=== PATIENT | male | born 1960 | race Caucasian/White ===

== ENCOUNTER 2022-04-07 06:51 | Emergency (ER) | payer OTHER, SELFPAY ==
[2022-04-07 07:00] VITALS: BP 118/74; PULSE 80; RESP 20; TEMP 36.9; O2SAT 94
--- NOTE | 2022-04-07 07:09 | ED_ITS ---
HPI - General Adult General Time Seen by Provider: 07:09 <Levar Arellano MD - Last Filed: 04/07/22 07:40> Date Seen: 04/07/22 <Levar Arellano MD - Last Filed: 04/07/22 07:40> Chief complaint: Anxiety <Levar Arellano MD - Last Filed: 04/07/22 07:40> Stated complaint: Mental health <Levar Arellano MD - Last Filed: 04/07/22 07:40> Time Seen by Provider: 04/07/22 07:03 <Levar Arellano MD - Last Filed: 04/07/22 07:40> Source: patient <Levar Arellano MD - Last Filed: 04/07/22 07:40> Mode of arrival: EMS <Levar Arellano MD - Last Filed: 04/07/22 07:40> Limitations: no limitations <Levar Arellano MD - Last Filed: 04/07/22 07:40> History of Present Illness HPI narrative: Theron is a 61-year-old male past medical history includes anxiety and depression, suicidal ideations and suicide attempt in the past with overdose, presents emergency department from [facility] via EMS with anxiety. Patient states that over the last 2 months he has had increased anxiety not being able to sleep. Patient states that he just lays in bed looking at the fan on the ceiling cannot sleep, he says for 25 days straight, he was started on Prozac 2 months ago which is not helping, he did have outpatient therapy but has not been going recently. Has anger issues due to being tired of being anxious and feeling this way. Patient denies any suicidal ideations, denies any auditory or visual hallucinations. He feels that his primary does not help him. His last drink was 3 weeks ago, he quit smoking as well. Denies any illicit drug use. Has been sometime since he has had his blood checked. Denies any fever, cough, shortness of breath or chest pain, no recent illness. Patient does state he had an episode of vomiting yesterday after eating some pizza. Denies any diarrhea or urinary complaints. Patient has no cardiac or stroke history. Due to the increased anger and anxiety associated with this he presentsto the emergency department. <Levar Arellano MD - Last Filed: 04/07/22 07:40> Related Data Home medications: Home Medications Medication Instructions Recorded Confirmed amlodipine 5 mg tablet 5 mg PO DAILY 04/07/22 04/07/22 atorvastatin 20 mg tablet 20 mg PO HS 04/07/22 04/07/22 fluoxetine 20 mg capsule 20 mg PO DAILY 04/07/22 04/07/22 pantoprazole 40 mg tablet,delayed 40 mg PO DAILY 04/07/22 04/07/22 release Previous Rx's Medication Instructions Recorded gabapentin 300 mg capsule 300 mg PO .at HS insomnia #30 caps 04/07/22 <Levar Arellano MD - Last Filed: 04/07/22 07:40> Allergies/adverse reactions: Allergies Allergy/AdvReac Type Severity Reaction Status Date / Time No Known Drug Allergies Allergy Verified 04/07/22 07:05 <Levar Arellano MD - Last Filed: 04/07/22 07:40> Review of Systems Status of ROS: Reports: 10 or more systems reviewed and unremarkable except as noted in History and below <Levar Arellano MD - Last Filed: 04/07/22 07:40> [facility] Social History: Social History Smoking Status: Former smoker Do you use any of these nicotine containing products: None Second hand tobacco smoke exposure: No How often do you have a drink containing alcohol: never How often do you have six or more drinks on one occasion: Never AUDIT-C Alcohol total score: 0 Non-prescribed substance use: denies use Non-prescribed substance use details: Patient reports smoking cessation January 01, ETOH cessation x 1 month. <Levar Arellano MD - Last Filed: 04/07/22 07:40> Exam Narrative: Exam Narrative: General: Mildly anxious in appearance, nontoxic. HEENT: Tympanic membranes within normal limits bilaterally, pupils equal round reactive to light, extraocular muscles intact Neck: Supple, full range of motion Lungs: CTA bilaterally Heart: Normal sinus rhythm, S1-S2 Abdomen: Soft, nontender to palpation, bowel sounds present Muscle skeletal: No lower extremity edema, +5 strength upper lower extremities Neuro: Awake alert and oriented x3 Psych: Mood and affect normal, anxious <Levar Arellano MD - Last Filed: 04/07/22 07:40> Const: Vital Signs, click to edit/add: Vital Signs - 24 hr 04/07/22 07:00 04/07/22 08:05 Temperature 98.5 F Pulse Rate [Left P ulse Oximeter] 80 77 Respiratory Rate 20 18 Blood Pressure [Ri ght Upper Arm] 118/74 Pulse Oximetry 94 95 Oxygen Delivery Me thod Room Air Room Air <Levar Arellano MD - Last Filed: 04/07/22 07:40> Vital Signs, click to edit/add: Vital Signs - 24 hr 04/07/22 07:00 04/07/22 08:05 Temperature 98.5 F Pulse Rate [Left P ulse Oximeter] 80 77 Respiratory Rate 20 18 Blood Pressure [Ri ght Upper Arm] 118/74 Pulse Oximetry 94 95 Oxygen Delivery Me thod Room Air Room Air <Roni Baker MD - Last Filed: 04/07/22 09:12> Course Course Hospital Course: 7:30 AM: AIDET performed. vitals are stable. Patient has not currently been seeing a therapist, feels that his medications are not working at this time, did offer [facility] social work and he agreed to talk to them, he also agreed to take basic blood work including CBC, TSH, CMP, serum ETOH and urine drug screen, he will be given oral Ativan 0.5 mg during his time, will try to get him to scheduled to see a primary care provider he has seen in the past and does well with. Patient is not currently suicidal, may give him a short prescription for Ativan to get him to his appointment. Due to shift change transfer of care was given to Dr. Baker, please see his note for final disposition and plan. Differential diagnosis include life-threatening diagnosis of severe depression with suicidal plan, chemical intoxication with suicidal ideation and risk of self-harm, schizoaffective disorder with risk of self-harm, bipolar disorder with severe depressive phase and risk of self-harm, personality disorder with risk of self-harm, depression due to hypothyroidism metabolic derangement or NONDESTRUCTIVE TESTER abnormality. <Levar Arellano MD - Last Filed: 04/07/22 07:40> Vital Signs Vital signs: Initial Vital Signs Temperature 98.5 F 04/07/22 07:00 Temperature Source Temporal Artery Scan 04/07/22 07:00 Pulse Rate 80 04/07/22 07:00 Pulse Rhythm 04/07/22 07:00 Respiratory Rate 20 04/07/22 07:00 Blood Pressure 118/74 04/07/22 07:00 Blood Pressure Mean 88 04/07/22 07:00 Blood Pressure Position Semi-Fowlers 04/07/22 07:00 Pulse Oximetry 94 04/07/22 07:00 Oxygen Delivery Method 04/07/22 07:00 Vital Signs Temperature 98.5 F 04/07/22 07:00 Pulse Rate 80 04/07/22 07:00 Respiratory Rate 20 04/07/22 07:00 Blood Pressure 118/74 04/07/22 07:00 Pulse Oximetry 94 04/07/22 07:00 Oxygen Delivery Method 04/07/22 07:00 Temperature 98.5 F 04/07/22 07:00 Pulse Rate 77 04/07/22 08:05 Respiratory Rate 18 04/07/22 08:05 Blood Pressure 118/74 04/07/22 07:00 Pulse Oximetry 95 04/07/22 08:05 Oxygen Delivery Method 04/07/22 08:05 <Levar Arellano MD - Last Filed: 04/07/22 07:40> Initial Vital Signs Temperature 98.5 F 04/07/22 07:00 Temperature Source Temporal Artery Scan 04/07/22 07:00 Pulse Rate 80 04/07/22 07:00 Pulse Rhythm 04/07/22 07:00 Respiratory Rate 20 04/07/22 07:00 Blood Pressure 118/74 04/07/22 07:00 Blood Pressure Mean 88 04/07/22 07:00 Blood Pressure Position Semi-Fowlers 04/07/22 07:00 Pulse Oximetry 94 04/07/22 07:00 Oxygen Delivery Method 04/07/22 07:00 Vital Signs Temperature 98.5 F 04/07/22 07:00 Pulse Rate 80 04/07/22 07:00 Respiratory Rate 20 04/07/22 07:00 Blood Pressure 118/74 04/07/22 07:00 Pulse Oximetry 94 04/07/22 07:00 Oxygen Delivery Method 04/07/22 07:00 Temperature 98.5 F 04/07/22 07:00 Pulse Rate 77 04/07/22 08:05 Respiratory Rate 18 04/07/22 08:05 Blood Pressure 118/74 04/07/22 07:00 Pulse Oximetry 95 04/07/22 08:05 Oxygen Delivery Method 04/07/22 08:05 <Roni Baker MD - Last Filed: 04/07/22 09:12> Medical Decision Making MDM Narrative Medical decision making narrative: Patient is received from the sign over physician, I discussed the case with the mental health bearing ring assembler, she feels follow-up with primary care is important. He does not have a good relationship with his current, she will try to make an appointment with a previous primary care provider. He already has a counselor place, he is not suicidal or homicidal, is trying to make life changes, he has tried [id number]-[id number] and other ways for the insomnia. Past history of alcohol abuse but he tells me he has not used this in the last 3 weeks. I think it would be reasonable at this point as he is safe to go home to try some gabapentin 300 mg at at bedtime, per the up-to-date guidelines this is beneficial in people with a history of alcohol use. The remainder of his labs look okay. He will return if any worsening condition, he assured me of this. <Roni Baker MD - Last Filed: 04/07/22 09:12> Differential Diagnosis Differential Diagnosis: Suicidal ideation, insomnia, psychosis, alcohol abuse, <Roni Baker MD - Last Filed: 04/07/22 09:12> Medical Records Medical records reviewed: Yes I reviewed the patient's medical records <Roni Baker MD - Last Filed: 04/07/22 09:12> Lab Data Lab results reviewed: Yes I reviewed the patient's lab results <Roni Baker MD - Last Filed: 04/07/22 09:12> Labs: Lab Results 04/07/22 04/07/22 Range/Units 07:37 07:37 WBC 10.63 (4.50-11.00) K/uL RBC 4.06 L (4.30-5.90) m/uL Hgb 12.9 L (13.5-17.5) gm/dL Hct 38.3 (37.0-53.0) % MCV 94 (80-100) fL MCH 32 (26-34) pg MCHC 34 (32-36) gm/dL RDW Coeff of Nanette 13.8 (11.5-15.5) % Plt Count 319 (140-440) K/uL Neut % (Auto) 61.8 (42.0-72.0) % Lymph % (Auto) 25.3 (20-44) % [place] % (Auto) 11.3 H (0.0-11.0) % Eos % (Auto) 1.3 (0.0-7.0) % Baso % (Auto) 0.2 (0.0-3.0) % Neut # (Auto) 6.57 (1.7-7.0) K/uL Lymph # (Auto) 2.69 (0.90-2.90) K/uL [place] # (Auto) 1.20 H (0.00-0.90) K/UL Eos # (Auto) 0.14 (0.00-0.50) K/uL Baso # (Auto) 0.02 (0.00-0.30) K/uL Abs Immat Gran (auto) 0.01 (0.00-0.30) K/uL Sodium 134 L (135-149) mmol/L Potassium 4.2 (3.6-5.1) mmol/L Chloride 100 (96-114) mmol/L Carbon Dioxide 25 (20-32) mmol/L BUN 13 (7-30) mg/dL Creatinine 0.7 (0.5-1.5) mg/dL Estimated GFR 104 ml/min Glucose 112 (60-115) mg/dL Calcium 9.2 (8.4-10.6) mg/dL Total Bilirubin 0.8 (0.1-1.5) mg/dL AST 62 H (12-35) U/L ALT 66 H (4-50) U/L Alkaline Phosphatase 96 (40-150) U/L Total Protein 7.1 (6.0-8.3) g/dL Albumin 4.2 (3.3-5.0) g/dL Ethyl Alcohol < 0.01 L (0.01-0.03) % <Levar Arellano MD - Last Filed: 04/07/22 07:40> Lab Results 04/07/22 04/07/22 Range/Units 07:37 07:37 WBC 10.63 (4.50-11.00) K/uL RBC 4.06 L (4.30-5.90) m/uL Hgb 12.9 L (13.5-17.5) gm/dL Hct 38.3 (37.0-53.0) % MCV 94 (80-100) fL MCH 32 (26-34) pg MCHC 34 (32-36) gm/dL RDW Coeff of Nanette 13.8 (11.5-15.5) % Plt Count 319 (140-440) K/uL Neut % (Auto) 61.8 (42.0-72.0) % Lymph % (Auto) 25.3 (20-44) % [place] % (Auto) 11.3 H (0.0-11.0) % Eos % (Auto) 1.3 (0.0-7.0) % Baso % (Auto) 0.2 (0.0-3.0) % Neut # (Auto) 6.57 (1.7-7.0) K/uL Lymph # (Auto) 2.69 (0.90-2.90) K/uL [place] # (Auto) 1.20 H (0.00-0.90) K/UL Eos # (Auto) 0.14 (0.00-0.50) K/uL Baso # (Auto) 0.02 (0.00-0.30) K/uL Abs Immat Gran (auto) 0.01 (0.00-0.30) K/uL Sodium 134 L (135-149) mmol/L Potassium 4.2 (3.6-5.1) mmol/L Chloride 100 (96-114) mmol/L Carbon Dioxide 25 (20-32) mmol/L BUN 13 (7-30) mg/dL Creatinine 0.7 (0.5-1.5) mg/dL Estimated GFR 104 ml/min Glucose 112 (60-115) mg/dL Calcium 9.2 (8.4-10.6) mg/dL Total Bilirubin 0.8 (0.1-1.5) mg/dL AST 62 H (12-35) U/L ALT 66 H (4-50) U/L Alkaline Phosphatase 96 (40-150) U/L Total Protein 7.1 (6.0-8.3) g/dL Albumin 4.2 (3.3-5.0) g/dL Ethyl Alcohol < 0.01 L (0.01-0.03) % <Roni Baker MD - Last Filed: 04/07/22 09:12> Discharge Plan Discharge Clinical Impression: Acute anxiety Insomnia Qualifiers: Insomnia type: unspecified Qualified Code(s): G47.00 - Insomnia, unspecified <Levar Arellano MD - Last Filed: 04/07/22 07:40> Patient Disposition: Home, Self-Care <Levar Arellano MD - Last Filed: 04/07/22 07:40> Condition: Stable <Levar Arellano MD - Last Filed: 04/07/22 07:40> Instructions: Insomnia (ED), Anxiety (ED) <Levar Arellano MD - Last Filed: 04/07/22 07:40> Additional Instructions: Home, rest, use of gabapentin 300 mg at night time, this medication will take approximately a week to really start working well for you. I recommend follow-up with primary care for recheck. And other modalities such as counseling, I think that is awesome for your changes you made in her life over the last few months. The medication will make you tired, do not combine with alcohol. <Levar Arellano MD - Last Filed: 04/07/22 07:40> Prescriptions: New gabapentin 300 mg capsule 300 mg PO .at HS Qty: 30 0RF No Action atorvastatin 20 mg tablet 20 mg PO HS Label Comments: TAKE ONE TABLET BY MOUTH AT BEDTIME amlodipine 5 mg tablet 5 mg PO DAILY Label Comments: TAKE 1 TABLET (5 MG) BY MOUTH ONCE DAILY pantoprazole 40 mg tablet,delayed release (DR/EC) 40 mg PO DAILY Label Comments: TAKE 1 TABLET BY MOUTH DAILY fluoxetine 20 mg capsule 20 mg PO DAILY Label Comments: TAKE 1 CAPSULE (20 MG) BY MOUTH EVERY MORNING. <Levar Arellano MD - Last Filed: 04/07/22 07:40> Follow Up/Referrals: Liza Ramirez MD [Staff Physician] - Anne Albrecht PA [Primary Care Provider] - <Levar Arellano MD - Last Filed: 04/07/22 07:40> Stand Alone Forms: MyHealth Info Instructions <Levar Arellano MD - Last Filed: 04/07/22 07:40>
[2022-04-07] MEDS: LORazepam 0.5 MG TABLET PO (07:41)
[2022-04-07 07:49] LABS: Basophils Absolute Auto 0.02 K/uL (0.00-0.30); Basophils Percent Auto 0.2 % (0.0-3.0); Eosinophils Absolute Auto 0.14 K/uL (0.00-0.50); Eosinophils Percent Auto 1.3 % (0.0-7.0); Hematocrit 38.3 % (37.0-53.0); Hemoglobin* 12.9 gm/dL (13.5-17.5); Immature Granulocytes Abs Auto 0.01 K/uL (0.00-0.30); Lymphocytes Absolute Auto 2.69 K/uL (0.90-2.90); Lymphocytes Percent Auto 25.3 % (20-44); Mean Corpuscular HGB Conc 34 gm/dL (32-36); Mean Corpuscular Hemoglobin 32 pg (26-34); Mean Corpuscular Volume 94 fL (80-100); Monocytes Percent Auto 11.3 % (0.0-11.0); Neutrophils Absolute Auto 6.57 K/uL (1.7-7.0); Neutrophils Percent Auto 61.8 % (42.0-72.0); Platelet Count* 319 K/uL (140-440); RDW Coefficient of Variation % 13.8 % (11.5-15.5); Red Blood Count 4.06 m/uL (4.30-5.90); White Blood Count* 10.63 K/uL (4.50-11.00)
[2022-04-07 08:05] VITALS: PULSE 77; RESP 18; O2SAT 95
[2022-04-07 08:18] LABS: Albumin* 4.2 g/dL (3.3-5.0)
[2022-04-07 08:19] LABS: Chloride* 100 mmol/L (96-114); Potassium* 4.2 mmol/L (3.6-5.1); Sodium* 134 mmol/L (135-149)
[2022-04-07 08:21] LABS: Alkaline Phosphatase* 96 U/L (40-150); Aspartate Amino Transferase* 62 U/L (12-35); Bilirubin Total* 0.8 mg/dL (0.1-1.5); Carbon Dioxide* 25 mmol/L (20-32); Creatinine* 0.7 mg/dL (0.5-1.5); Estimated Glomerular Filt Rate 104 ml/min; Total Protein* 7.1 g/dL (6.0-8.3)
[2022-04-07 08:22] LABS: Alanine Aminotransferase* 66 U/L (4-50); Blood Urea Nitrogen* 13 mg/dL (7-30); Calcium* 9.2 mg/dL (8.4-10.6); Glucose* 112 mg/dL (60-115)
[2022-04-07 08:24] LABS: Ethanol* < 0.01 % (0.01-0.03); Slide Review Reflex No
--- NOTE | 2022-04-07 08:26 | ED.NURSE ---
DEC assessment completed. Breakfast tray ordered for patient. No further needs at present. Patient resting on cot, semi-fowlers. Call light in reach.
--- NOTE | 2022-04-07 10:04 | ED.NURSE ---
Discussed ED discharge instructions, DEC safety plan, DEC follow up appointments with patient. He is agreeable. Per advise from social worker clinical, patient will try contacting the transportation number on the back of his insurance card to assist with transportation to appointments. Patient has no one to provide ride home, will call taxi for patient.
[2022-04-07 10:15] VITALS: BP 124/79; PULSE 71; RESP 18; TEMP 36.8; O2SAT 94
--- NOTE | 2022-04-07 10:23 | ED.NURSE ---
Patient leaves ED ambulatory, [facility] providing ride home.
== END 2022-04-07 10:22 | disposition home or self-care (01) ==
PROVIDERS: Student in an Organized Health Care Education/Training Program; Emergency Provider Family Medicine; PCP Physician Assistant
DX: F41.9 Anxiety disorder, unspecified (principal)
CPT/HCPCS: 36415; 80053; 80306; 82077; 84443; 85025; 99283; 99284; A0425; A0429; A9270

== ENCOUNTER 2022-12-11 11:39 | Outpatient (CLI) | payer OTHER, SELFPAY | END 2022-12-11 11:40 | disposition home or self-care (01) | LOC: OP CLINIC 11:41 | PROVIDERS: PCP Physician Assistant; Visit Provider Internal Medicine Gastroenterology | DX: Z12.11 Encounter for screening for malignant neoplasm of colon (principal); K63.5 Polyp of colon | CPT/HCPCS: 45385; 88305; 99153; J2250; J3010 ==

== ENCOUNTER 2024-05-26 13:20 | Emergency (ER) | payer OTHER, SELFPAY ==
[2024-05-26 13:29] VITALS: BP 166/80; PULSE 88; RESP 18; TEMP 36.6; O2SAT 96; BMI 29.2
--- NOTE | 2024-05-26 13:36 | ED.PSYCH ---
HPI - Psych General Time Seen by Provider: 13:36 Date Seen: 05/26/24 Chief Complaint: Psychiatric Problem/Disorder Stated Complaint: mental health Time Seen by Provider: 05/26/24 13:36 Source: patient, RN notes reviewed and old records reviewed Mode of arrival: ambulatory Limitations: no limitations History of Present Illness HPI Narrative: Michi is a very pleasant 63-year-old gentleman who was dropped off by the [place] [employer] as he is been feeling very depressed lately. Patient notes that he has had lifelong depression with remote history of hospitalization but that things seem to be getting worse. He notes that he is having current challenges this with his girlfriend and that she has been going to the [employer] and has not paid rent. He notes that he is having a hard time sleeping and he is using alcohol daily to help with that. He states that when he gets in bed his mine spins. He knows that he has been drinking too much and he states that he has been trying to cut down. Denies a history of withdrawal or seizures in the past. Has not been smoking for at least 2 and half years. No other drug use. Sean states that he cannot go on as things are. In the next sentence he tells me that he is not suicidal and would never do that because he has too many people that love him. He notes that he is getting up every day with nothing to look forward to. 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 Patient states that he sees Alia gutierrez at the at the [facility]. He believes that he is on 2 medications for depression 1 of them being Zoloft. He thinks he recently increase that dose. He denies visual or auditory hallucinations. He has not had any fever chills, head trauma, concussion, issues with other illnesses. He has no history of hypothyroidism. He does take vitamin-D. Patient notes that he has had some itching and scabbing on his upper extremities. Feels like he might have a parasite. This is limited to his arms and his upper back. This is not happening on his legs. Related Data Home Medications ?Medication ?Instructions ?Recorded ?Confirmed amlodipine 5 mg tablet 5 mg PO DAILY 04/07/22 03/20/23 atorvastatin 20 mg tablet 20 mg PO HS 04/07/22 03/20/23 pantoprazole 40 mg tablet,delayed 40 mg PO DAILY 04/07/22 05/26/24 release cholecalciferol (vitamin D3) 1,250 1,250 mcg PO 05/26/24 mcg (50,000 unit) capsule hydrochlorothiazide 12.5 mg tablet 12.5 mg PO DAILY 05/26/24 05/26/24 sertraline 100 mg tablet 150 mg PO QAM 05/26/24 05/26/24 Previous Rx's ?Medication ?Instructions ?Recorded gabapentin 300 mg capsule 300 mg PO .at HS insomnia #30 caps 04/07/22 Allergies Allergy/AdvReac Type Severity Reaction Status Date / Time No Known Drug Allergies Allergy Unverified 03/20/23 10:39 Review of Systems Status of ROS: Reports: 10 or more systems reviewed and unremarkable except as noted in History and below Const: Denies: fever Eyes: Denies: change in vision ENMT: Denies: neck pain or nasal congestion Cardio: Denies: chest pain, palpitations, swelling of feet/ankles, lightheadedness or shortness of breath with exertion Resp: Denies: shortness of breath or cough GI: Denies: abdominal pain, nausea, vomiting, diarrhea or blood in stool : Denies: painful urination Musculo: Denies: neck pain Integ/Breast: Reports: itching Neuro: Denies: headache Psych: Reports: anxiety, hopelessness and loss of interest [facility] Medical History Weakness ?R53.1 - Weakness (ICD-10) Traumatic injury ?T14.90XA - Injury, unspecified, initial encounter (ICD-10) Suicidal ideation ?R45.851 - Suicidal ideations (ICD-10) Pneumonia ?J18.9 - Pneumonia, unspecified organism (ICD-10) Left ankle pain ?M25.572 - Pain in left ankle and joints of left foot (ICD-10) Encounter for wound re-check ?Z51.89 - Encounter for other specified aftercare (ICD-10) Edema ?R60.9 - Edema, unspecified (ICD-10) Diarrhea in adult patient ?R19.7 - Diarrhea, unspecified (ICD-10) Depression ?F32.A - Depression, unspecified (ICD-10) Contusion of rib on left side ?S20.212A - Contusion of left front wall of thorax, initial encounter (ICD-10) Attempted suicide ?T14.91XA - Suicide attempt, initial encounter (ICD-10) Anger reaction ?R45.4 - Irritability and anger (ICD-10) History of alcohol abuse ?F10.11 - Alcohol abuse, in remission (ICD-10) Surgical History Status post left foot surgery ?Z98.890 - Other specified postprocedural states (ICD-10) S/P ORIF (open reduction internal fixation) fracture (~2014) ?Z98.890 - Other specified postprocedural states (ICD-10) ?Z87.81 - Personal history of (healed) traumatic fracture (ICD-10) History of hammertoe correction (06/24/14) ?Z98.890 - Other specified postprocedural states (ICD-10) ?Z87.39 - Personal history of other diseases of the musculoskeletal system and connective tissue (ICD-10) Social History Smoking Status: Former smoker What tobacco products do you use: cigarettes Smoking quit date/years: <= 15 years ago Do you use any of these nicotine containing products: None Second hand tobacco smoke exposure: No How often do you have a drink containing alcohol: never How often do you have six or more drinks on one occasion: Never AUDIT-C Alcohol total score: 0 Non-prescribed substance use: denies use Non-prescribed substance use details: Patient reports smoking cessation January 01, ETOH cessation x 1 month. Exam Narrative: Exam Narrative: Patient is alert and oriented. Seems sad. Normal affect. External ears eyes nose clear. Moments of crying. Neck is supple without lymphadenopathy. No thyromegaly. Heart with regular rate and rhythm and lungs are clear bilaterally. Abdomen soft nontender without masses. Lower extremities without edema. On upper extremities few cases of excoriation with scabs. Lower legs without any evidence of scabbing. Const: Vital Signs, click to edit/add: Vital Signs - 24 hr 05/26/24 13:29 Temperature 98 F Pulse Rate [Pulse Oximeter] 88 Respiratory Rate 18 Blood Pressure [Ri ght Upper Arm] 166/80 H Pulse Oximetry 96 Oxygen Delivery Me thod Room Air Documenting provider has reviewed patient's vital signs: yes Course Course ED Course: At this time can presents with acute on chronic depression. He has had some suicidal thoughts but states that he would never do something like that. He states that tube any people of him and he again is not at risk for that. He states however that it is difficult and challenging to get up every morning with nothing to look forward to. He describes significant issues with his girlfriend who he has tried to break up with. He lives independently in [address] [facility] [address]. She does not live with him. He admits that alcohol use had been a case of beer a day but he has been decreasing that intake. He denies any history of withdrawal. Not interested in detox or treatment at this time. Is receptive to a blood draw to ensure there is no evidence of hypothyroidism, vitamin-D deficiency, hypo magnesemia, elevated LFTs are other medical reason for increased depression. Patient does think he probably needs to be hospitalized disease just not feeling well. Again, denies suicidal ideation at this time. Will also attempt to contact with the [facility] to discuss his medications for depression. Addendum: [facility] was kind enough to put me in contact with Dr. Lawson. Alia esquivel at patient's primary psychiatric provider was not available. We were able to ascertain that patient is only on sertraline for depression. He uses 300 mg of gabapentin to help with insomnia before bed. Dr. Lawson was kind enough to put in an order for an expedited psychiatric evaluation. Reevaluation(s) Reevaluation #1: Michi was leaving and nursing staff notified me. States he just cannot get comfortable and wants to go home. Denies any suicidal ideation and stating he would never do something like that. Notes he just does not feel well. I did tell him that I have labs pending at this time and I would really appreciate the ability to make sure that there is nothing going on and he does agree to stay. I did give him Zofran 4 mg ODT for nausea. He tried to eat dinner after ordering it and being hungry and was unable to do so. States he almost feels like he wants to pass out because he does not feel well. His vital signs remain stable at this time. I hope that this helps. Also giving him 1 mg of oral Ativan for anxiety. Labs are still pending at this time. At this time changes his mind about going to inpatient treatment. He states he would really like to go home. He contracts for safety. Patient received a phone call from Carolynn and he has an appointment on SundayMay 28 at 1115. He is very happy about this. Reevaluation #2: Labs heart returned. Patient did receive multivitamin, folate, thiamin for his alcohol use. He was so much better after the Zofran and nausea had dissipated and therefore we held off on Ativan. However, will send Ativan 1 mg tablet home with the to be used 1/2 tab q.h.s. p.r.n. sleep. He promises that he will not use alcohol. Vital Signs Vital signs: Initial Vital Signs Temperature 98 F 05/26/24 13:29 Temperature Source Temporal Artery Scan 05/26/24 13:29 Pulse Rate 88 05/26/24 13:29 Respiratory Rate 18 05/26/24 13:29 Blood Pressure 166/80 H 05/26/24 13:29 Blood Pressure Mean 108 H 05/26/24 13:29 Blood Pressure Position Supine 05/26/24 13:29 Pulse Oximetry 96 05/26/24 13:29 Oxygen Delivery Method Room Air 05/26/24 13:29 Vital Signs Temperature 98 F 05/26/24 13:29 Pulse Rate 88 05/26/24 13:29 Respiratory Rate 18 05/26/24 13:29 Blood Pressure 166/80 H 05/26/24 13:29 Pulse Oximetry 96 05/26/24 13:29 Oxygen Delivery Method Room Air 05/26/24 13:29 Temperature 98 F 05/26/24 13:29 Pulse Rate 88 05/26/24 13:29 Respiratory Rate 18 05/26/24 13:29 Blood Pressure 166/80 H 05/26/24 13:29 Pulse Oximetry 96 05/26/24 13:29 Oxygen Delivery Method Room Air 05/26/24 13:29 Medications Administered Medications: Discontinued Medications Generic Name Dose Route Start Last Admin Trade Name Freq PRN Reason Stop Dose Admin Lorazepam 1 mg 05/26/24 14:59 05/26/24 15:25 Lorazepam 1 Mg Tablet PO 05/26/24 15:00 1 mg ONCE ONE Administration Multivitamins/Minerals 1 tab 05/26/24 15:15 05/26/24 15:21 Multivitamin/Minerals 1 Tablet PO 05/26/24 15:16 1 tab ONCE ONE Administration Ondansetron HCl 4 mg 05/26/24 15:05 05/26/24 15:22 Ondansetron Odt 4 Mg Tab PO 05/26/24 15:06 4 mg ONCE ONE Administration Thiamine HCl 100 mg 05/26/24 14:00 05/26/24 15:21 Thiamine 100 Mg Tablet PO 05/26/24 14:01 100 mg ONCE ONE Administration MDM - Psych MDM Narrative Medical decision making narrative: 1. Acute on chronic depression-initially douglas was seeking inpatient treatment although denying suicidal ideation. He did change his mind and I do not have criteria for a hold and do believe that he is not suicidal. We were able to get him an appointment within 36 hours and he is very happy about that. He has is a Ativan 0.5 mg to use prior to bedtime. I did not want to give a full prescription since he has been dealing with alcohol use. He states he has been tapering down and has been successful at doing that but I do suggest abstinence completely. He is going to try that. Fortunately denies a history of withdrawal or withdrawal seizures. There is in a group that meets near his home. He is going to look into that as well. His follow-up appointment is on SundayMay 28 at 1115 hours. If he has worsening symptoms would have him return prior to that. He is in agreement with this. 2. Alcohol abuse 3. Nausea-resolved after Zofran. He was feeling remarkably improved. Alcohol level is only 0.04 at this time. His LFTs are reassuring. Push fluids. Laboratory values no no evidence of leukocytosis, normal hemoglobin, normal kidney function potassium. Magnesium is within normal limits, CRP is negative B12 within normal limits vitamin-D low normal at 33 and TSH is within normal limits. No evidence of UTI tox screen is positive for marijuana. 4. Disposition -home at this time. Reassures me multiple times that he is not at risk for suicide. Does agree that his current relationship is not healthy for him. Plans on following up at [facility]. Does agree to return to the ER as needed. Medical Records Attestation: I reviewed the patient's medical records. Lab Data Attestation: I reviewed the patient's lab results. Labs: Lab Results 05/26/24 05/26/24 Range/Units 14:12 14:35 WBC 8.20 (4.50-11.00) K/uL RBC 4.24 L (4.30-5.90) m/uL Hgb 12.3 L (13.5-17.5) gm/dL Hct 36.9 L (37.0-53.0) % MCV 87 (80-100) fL MCH 29 (26-34) pg MCHC 33 (32-36) gm/dL RDW Coeff of Nanette 15.7 H (11.5-15.5) % Plt Count 350 (140-440) K/uL Neut % (Auto) 62.5 (42.0-72.0) % Lymph % (Auto) 28.2 (20-44) % Clarke % (Auto) 8.0 (0.0-11.0) % Eos % (Auto) 0.6 (0.0-7.0) % Baso % (Auto) 0.5 (0.0-3.0) % Neut # (Auto) 5.12 (1.7-7.0) K/uL Lymph # (Auto) 2.31 (0.90-2.90) K/uL Clarke # (Auto) 0.70 (0.00-0.90) K/UL Eos # (Auto) 0.05 (0.00-0.50) K/uL Baso # (Auto) 0.04 (0.00-0.30) K/uL Abs Immat Gran (auto) 0.02 (0.00-0.30) K/uL Imm/Tot Granulo (auto) 0.2 % Sodium 134 L (135-149) mmol/L Potassium 3.8 (3.6-5.1) mmol/L Chloride 99 (96-114) mmol/L Carbon Dioxide 20 (20-32) mmol/L Anion Gap 15 (7-15) mEq/L BUN 4 L (7-30) mg/dL Creatinine 0.6 (0.5-1.5) mg/dL Estimated Creat Clear 81.91 Estimated GFR 108 ml/min Glucose 86 (60-115) mg/dL Calcium 9.4 (8.4-10.6) mg/dL Magnesium 2.0 (1.5-2.6) mg/dL Total Bilirubin 0.4 (0.1-1.5) mg/dL AST 52 H (12-35) U/L ALT 49 (4-50) U/L Alkaline Phosphatase 108 (40-150) U/L C-Reactive Protein < 0.5 L (0.5-1.0) mg/dL Total Protein 8.0 (6.0-8.3) g/dL Albumin 4.7 (3.3-5.0) g/dL Vitamin B12 828 (243-894) pg/mL 25-OH Vitamin D Total 33 (30-80) ng/mL TSH 2.310 (0.270-4.200) uIU/mL Urine Color Yellow (Yellow) Urine Appearance Clear (Clear) Urine pH 6.0 (5.0-8.5) Ur Specific [place] 1.015 (1.000-1.030) Urine Protein Negative (Negative) Urine Glucose (UA) Negative (Negative) Urine Ketones Negative (Negative) Urine Blood Trace-lysed A (Negative) Urine Nitrite Negative (Negative) Urine Bilirubin Negative (Negative) Urine Urobilinogen 0.2 (0.2-1.0) Ur Leukocyte Esterase Negative (Negative) Urine Opiates Screen Negative (Negative) Ur Oxycodone Screen Negative (Negative) Urine Methadone Screen Negative (Negative) Ur Barbiturates Screen Negative (Negative) U Tricyclic Antidepress Negative (Negative) Ur Phencyclidine Scrn Negative (Negative) Ur Amphetamines Screen Negative (Negative) U Methamphetamines Scrn Negative (Negative) U Benzodiazepines Scrn Negative (Negative) Urine Cocaine Screen Negative (Negative) U Marijuana (THC) Screen POSITIVE A (Negative) Ur Drug Screen Comment See Note Ethyl Alcohol 0.04 H (0.01-0.03) % Discharge Plan Discharge Clinical Impression: Depression Patient Disposition: Home, Self-Care Condition: Improved Additional Instructions: We will send an Ativan tablet home with you. Take 1/2 of a tab before bed tonight if needed. Please do not use with alcohol. You may use the other half tab if needed for Sunday night before your appointment on Sunday You have an appointment at [facility] on SundayMay [address] Rubio If you are having suicidal thoughts, feeling worse, please return to the emergency room. Prescriptions: No Action atorvastatin 20 mg tablet 20 mg PO HS Patient Comments: TAKE ONE TABLET BY MOUTH AT BEDTIME amlodipine 5 mg tablet 5 mg PO DAILY Patient Comments: TAKE 1 TABLET (5 MG) BY MOUTH ONCE DAILY pantoprazole 40 mg tablet,delayed release (DR/EC) 40 mg PO DAILY Patient Comments: TAKE 1 TABLET BY MOUTH DAILY gabapentin 300 mg capsule 300 mg PO .at HS Qty: 30 0RF sertraline 100 mg tablet 150 mg PO QAM hydrochlorothiazide 12.5 mg tablet 12.5 mg PO DAILY cholecalciferol (vitamin D3) 1,250 mcg (50,000 unit) capsule 1,250 mcg PO Follow Up/Referrals: Ellie Brasher PA-C [Primary Care Provider] - Stand Alone Forms: [employer] Info Instructions
[2024-05-26 14:24] LABS: Basophils Absolute Auto 0.04 K/uL (0.00-0.30); Basophils Percent Auto 0.5 % (0.0-3.0); Eosinophils Absolute Auto 0.05 K/uL (0.00-0.50); Eosinophils Percent Auto 0.6 % (0.0-7.0); Hematocrit 36.9 % (37.0-53.0); Hemoglobin* 12.3 gm/dL (13.5-17.5); Immature Granulocytes Abs Auto 0.02 K/uL (0.00-0.30); Immature Granulocytes Pct Auto 0.2 %; Lymphocytes Absolute Auto 2.31 K/uL (0.90-2.90); Lymphocytes Percent Auto 28.2 % (20-44); Mean Corpuscular HGB Conc 33 gm/dL (32-36); Mean Corpuscular Hemoglobin 29 pg (26-34); Mean Corpuscular Volume 87 fL (80-100); Neutrophils Absolute Auto 5.12 K/uL (1.7-7.0); Neutrophils Percent Auto 62.5 % (42.0-72.0); Platelet Count* 350 K/uL (140-440); RDW Coefficient of Variation % 15.7 % (11.5-15.5); Red Blood Count 4.24 m/uL (4.30-5.90)
[2024-05-26 14:25] LABS: Slide Review Reflex No
[2024-05-26 14:43] LABS: Appearance Urine Clear (Clear); Bilirubin Urine Negative (Negative); Blood Urine Trace-lysed (Negative); Color Urine Yellow (Yellow); Glucose Urine Negative (Negative); Ketones Urine Negative (Negative); Leukocyte Esterase Urine Negative (Negative); Nitrite Urine Negative (Negative); Protein Urine Negative (Negative); Specific Gravity Urine 1.015 (1.000-1.030); Urobilinogen Urine 0.2 (0.2-1.0)
--- NOTE | 2024-05-26 14:49 | ED.NURSE ---
PT calm and cooperative throughout assessment. Ordered patient a chicken sandwich, potato wedges and coca cola. Patient cooperative with lab collection and left a UA. Patient pacing hallways after having eaten. Still calm and mostly compliant.
[2024-05-26 14:50] LABS: Amphetamine Screen Urine Negative (Negative); Barbiturate Screen Urine Negative (Negative); Benzodiazepines Screen Urine Negative (Negative); Cannabinoid Screen Urine POSITIVE (Negative); Cocaine Screen Urine Negative (Negative); Methadone Screen Urine Negative (Negative); Methamphetamines Screen Urine Negative (Negative); Opiate Screen Urine Negative (Negative); Oxycodone Screen Urine Negative (Negative); Phencyclidine Screen Urine Negative (Negative); Tricyclic Antidepressant Urine Negative (Negative)
[2024-05-26 14:51] LABS: Albumin* 4.7 g/dL (3.3-5.0); Chloride* 99 mmol/L (96-114)
[2024-05-26 14:52] LABS: Potassium* 3.8 mmol/L (3.6-5.1); Sodium* 134 mmol/L (135-149)
[2024-05-26 14:54] LABS: Creatinine* 0.6 mg/dL (0.5-1.5); Est. Creatinine Clearance* 81.91; Estimated Glomerular Filt Rate 108 ml/min
[2024-05-26 14:55] LABS: Alanine Aminotransferase* 49 U/L (4-50); Alkaline Phosphatase* 108 U/L (40-150); Anion Gap 15 mEq/L (7-15); Aspartate Amino Transferase* 52 U/L (12-35); Bilirubin Total* 0.4 mg/dL (0.1-1.5); Blood Urea Nitrogen* 4 mg/dL (7-30); Calcium* 9.4 mg/dL (8.4-10.6); Carbon Dioxide* 20 mmol/L (20-32); Ethanol* 0.04 % (0.01-0.03); Glucose* 86 mg/dL (60-115)
[2024-05-26 15:00] LABS: C Reactive Protein* < 0.5 mg/dL (0.5-1.0)
[2024-05-26 15:11] LABS: Vitamin D 25 Hydroxy* 33 ng/mL (30-80)
[2024-05-26] MEDS: THIAMINE 100 MG TABLET PO (15:21)
[2024-05-26] MEDS: MULTIVITAMIN/MINERALS 1 TABLET 1 TAB PO (15:21)
[2024-05-26] MEDS: ONDANSETRON ODT 4 MG TAB PO (15:22)
[2024-05-26] MEDS: LORazepam 1 MG TABLET PO (15:25)
[2024-05-26 15:44] LABS: Vitamin B12* 828 pg/mL (243-894)
[2024-05-27 12:16] LABS: RBC Urine 0-2 (0-2); WBC Urine 0-2 (0-5)
== END 2024-05-26 15:30 | disposition home or self-care (01) ==
PROVIDERS: Emergency Provider Family Medicine; PCP Student in an Organized Health Care Education/Training Program
DX: F32.9 Major depressive disorder, single episode, unspecified (principal)
CPT/HCPCS: 36415; 80053; 80306; 81001; 82077; 82306; 82607; 83735; 84443; 85025; 86140; 99283; 99284; A9153; A9270

== ENCOUNTER 2024-12-17 13:37 | Emergency (ER) | payer OTHER, SELFPAY ==
[2024-12-17 13:46] VITALS: BP 139/85; PULSE 105; RESP 20; TEMP 37.2; O2SAT 96; BMI 26.3
--- NOTE | 2024-12-17 14:01 | ED_ITS ---
HPI - General Adult General Chief complaint: Skin/Abscess/Foreign Body Stated complaint: L big toe infection Time Seen by Provider: 12/17/24 13:39 History of Present Illness HPI narrative: Patient is a 64-year-old nondiabetic male who has had on and off redness of his left great toe for the last couple months. He notices some scaling on the top of his tip of his toe beyond his nail and he has tried to scrape that off a couple of times and then covered with Neosporin today he noticed more redness across the top of the toe he has no 1st MTP joint redness he has had no history of gout or toe infections he denies foreign body or injury denies any specific injury to his toe denies dropping anything on it or stubbing it recently. Related Data Home Medications ?Medication ?Instructions ?Recorded ?Confirmed amlodipine 5 mg tablet 5 mg PO DAILY 04/07/22 12/17/24 atorvastatin 20 mg tablet 20 mg PO HS 04/07/22 03/20/23 pantoprazole 40 mg tablet,delayed 40 mg PO DAILY 04/07/22 12/17/24 release cholecalciferol (vitamin D3) 1,250 1,250 mcg PO 05/26/24 mcg (50,000 unit) capsule hydrochlorothiazide 12.5 mg tablet 12.5 mg PO DAILY 05/26/24 12/17/24 sertraline 100 mg tablet 150 mg PO QA 05/26/24 12/17/24 naltrexone 50 mg tablet 50 mg PO DAILY 12/17/24 12/17/24 Previous Rx's ?Medication ?Instructions ?Recorded gabapentin 300 mg capsule 300 mg PO .at HS insomnia #30 caps 04/07/22 amoxicillin 875 mg-potassium 1 tab PO BID #14 tabs 12/17/24 clavulanate 125 mg tablet Allergies Allergy/AdvReac Type Severity Reaction Status Date / Time No Known Drug Allergies Allergy Unverified 03/20/23 10:39 Review of Systems Status of ROS: Reports: 6 or more systems reviewed and unremarkable except as noted in History and below [facility] Medical History Weakness ?R53.1 - Weakness (ICD-10) Traumatic injury ?T14.90XA - Injury, unspecified, initial encounter (ICD-10) Suicidal ideation ?R45.851 - Suicidal ideations (ICD-10) Pneumonia ?J18.9 - Pneumonia, unspecified organism (ICD-10) Left ankle pain ?M25.572 - Pain in left ankle and joints of left foot (ICD-10) Encounter for wound re-check ?Z51.89 - Encounter for other specified aftercare (ICD-10) Edema ?R60.9 - Edema, unspecified (ICD-10) Diarrhea in adult patient ?R19.7 - Diarrhea, unspecified (ICD-10) Depression ?F32.A - Depression, unspecified (ICD-10) Contusion of rib on left side ?S20.212A - Contusion of left front wall of thorax, initial encounter (ICD- 10) Attempted suicide ?T14.91XA - Suicide attempt, initial encounter (ICD-10) Anger reaction ?R45.4 - Irritability and anger (ICD-10) History of alcohol abuse ?F10.11 - Alcohol abuse, in remission (ICD-10) Surgical History Status post left foot surgery ?Z98.890 - Other specified postprocedural states (ICD-10) S/P ORIF (open reduction internal fixation) fracture (~2014) ?Z98.890 - Other specified postprocedural states (ICD-10) ?Z87.81 - Personal history of (healed) traumatic fracture (ICD-10) History of hammertoe correction (06/24/14) ?Z98.890 - Other specified postprocedural states (ICD-10) ?Z87.39 - Personal history of other diseases of the musculoskeletal system and connective tissue (ICD-10) Social History Smoking Status: Former smoker What tobacco products do you use: cigarettes Smoking quit date/years: <= 15 years ago Do you use any of these nicotine containing products: None Second hand tobacco smoke exposure: No How often do you have a drink containing alcohol: 2-4 times a month How many standard drinks containing alcohol do you have on a typical day: 3 or 4 How often do you have six or more drinks on one occasion: Never AUDIT-C Alcohol total score: 3 Non-prescribed substance use: denies use Non-prescribed substance use details: Patient reports smoking cessation January 01, ETOH cessation x 1 month. Exam Narrative: Exam Narrative: Objective: Vital signs unremarkable afebrile His left great toe shows redness over the entirety of the top of the toe to the foot and does not appear circumferential, careful inspection of his toe shows no breaks or foreign body in there was no other specific injury noted he has M able to touch the toes there is no fluctuance but it is warm and it is somewhat tender to him. No ascending cellulitic streaking Const: Vital Signs, click to edit/add: Vital Signs - 24 hr 12/17/24 13:46 Temperature 99 F Pulse Rate [Pulse Oximeter] 105 H Respiratory Rate 20 Blood Pressure [Ri ght Upper Arm] 139/85 Pulse Oximetry 96 Oxygen Delivery Me thod Room Air Course Vital Signs Vital signs: Initial Vital Signs Temperature 99 F 12/17/24 13:46 Temperature Source Temporal Artery Scan 12/17/24 13:46 Pulse Rate 105 H 12/17/24 13:46 Respiratory Rate 20 12/17/24 13:46 Blood Pressure 139/85 12/17/24 13:46 Blood Pressure Mean 103 12/17/24 13:46 Pulse Oximetry 96 12/17/24 13:46 Oxygen Delivery Method Room Air 12/17/24 13:46 Vital Signs Temperature 99 F 12/17/24 13:46 Pulse Rate 105 H 12/17/24 13:46 Respiratory Rate 20 12/17/24 13:46 Blood Pressure 139/85 12/17/24 13:46 Pulse Oximetry 96 12/17/24 13:46 Oxygen Delivery Method Room Air 12/17/24 13:46 Temperature 99 F 12/17/24 13:46 Pulse Rate 105 H 12/17/24 13:46 Respiratory Rate 20 12/17/24 13:46 Blood Pressure 139/85 12/17/24 13:46 Pulse Oximetry 96 12/17/24 13:46 Oxygen Delivery Method Room Air 12/17/24 13:46 Medications Administered Medications: Discontinued Medications Generic Name Dose Route Start Last Admin Trade Name Freq PRN Reason Stop Dose Admin Ceftriaxone Sodium 500 mg 12/17/24 13:57 12/17/24 14:24 Ceftriaxone 500 Mg Vial IM 12/17/24 13:58 500 mg ONCE ONE Administration Lidocaine HCl 1 ml 12/17/24 13:57 12/17/24 14:24 Lidocaine 1% 5 Ml (Pf) 5 Ml Vial IM 1 ml DIRECTED PRN Administration Pain Medical Decision Making MDM Narrative Medical decision making narrative: 64 year white male with a left great toe infection cellulitis at this point I think just simply antibiotics in the form Rocephin IM and then followed out Augmentin 875 b.i.d. for 7 days would be appropriate warm soaks to continue on a 3 times a day basis. He has appointment to be seen in the next week. If he does not improve then I would recommend recheck sooner an imaging of his toe and at this point however I think just simply treat with antibiotics to be appropriate. He does not appear to have a paronychia infection. He agrees to follow up as above thanks Discharge Plan Discharge Clinical Impression: Cellulitis of great toe, left Patient Disposition: Home, Self-Care Condition: Stable Instructions: Paronychia (ED) Additional Instructions: Continue to soak the foot in soapy warm water 3 times a day for the next 5-7 days. Antibiotic will be called into your pharmacy. Follow-up with your regular doctor on the as planned. Return to ED sooner problems or concerns. Activity Level: Light activity Discharge Diet: Regular Prescriptions: New amoxicillin-pot clavulanate 875-125 mg tablet 1 tab PO BID Qty: 14 0RF No Action atorvastatin 20 mg tablet 20 mg PO HS Patient Comments: TAKE ONE TABLET BY MOUTH AT BEDTIME amlodipine 5 mg tablet 5 mg PO DAILY Patient Comments: TAKE 1 TABLET (5 MG) BY MOUTH ONCE DAILY pantoprazole 40 mg tablet,delayed release (DR/EC) 40 mg PO DAILY Patient Comments: TAKE 1 TABLET BY MOUTH DAILY gabapentin 300 mg capsule 300 mg PO .at HS Qty: 30 0RF naltrexone 50 mg tablet 50 mg PO DAILY sertraline 100 mg tablet 150 mg PO QAM hydrochlorothiazide 12.5 mg tablet 12.5 mg PO DAILY cholecalciferol (vitamin D3) 1,250 mcg (50,000 unit) capsule 1,250 mcg PO Follow Up/Referrals: Ellie Brasher PA-C [Primary Care Provider] - Stand Alone Forms: [employer] Info Instructions
[2024-12-17] MEDS: LIDOCAINE 1% 5 ml (pf) 5 ML VIAL 1 ML IM (14:24)
[2024-12-17] MEDS: cefTRIAXone 500 MG VIAL IM (14:24)
== END 2024-12-17 14:30 | disposition home or self-care (01) ==
LOC: ED 14:27
PROVIDERS: Emergency Provider Family Medicine; PCP Student in an Organized Health Care Education/Training Program
DX: L03.116 Cellulitis of left lower limb (principal)
CPT/HCPCS: 96372; 99283; J0696